=== PATIENT | female | born 1975 | race Caucasian/White ===

== ENCOUNTER 2016-12-24 21:21 | Emergency (ER) | payer SELFPAY ==
[~2016-12-24] VITALS: Ht 162.6 cm; Wt 52.2 kg
[2016-12-24 21:30] VITALS: BP 114/75
--- NOTE | 2016-12-24 22:21 | NUR ---
Pt taken to bed 11.
[2016-12-24] MEDS ORDERED: LIDOCAINE 1% ***ER ONLY *** 10 MG/ML VIAL INJ ONE (22:25)
--- NOTE | 2016-12-24 23:04 | NUR ---
Patient being evaluated by Dr. Robert at bedside.
--- NOTE | 2016-12-24 23:20 | NUR ---
PATIENT PRESENTS TO ED C/O BL UNDER ARM PAIN AND SWELLING . PT STATES PAIN AND SWELLING STARTED A WEEK AGO AND SHE PREVIOUSLY HAD THIS PROBLEM TO THE RT UNDERARM . DENIES N/V/D; SKIN IS PINK/WARM/DRY; AAOX4 WITH EVEN AND STEADY GAIT; LUNGS CLEAR BL; HR EVEN AND REGULAR; PT DENIES ANY FEVER, CP, SOB, OR COUGH AT THIS TIME; PATIENT STATES PAIN OF 5/10 AT THIS TIME; VSS; PATIENT POSITIONED FOR COMFORT; HOB ELEVATED; BEDRAILS UP X2; BED DOWN. ER MD MADE AWARE OF PT STATUS. NO DRAINAGE OR BLEEDING FORM THE SITES NOTED AT THIS TIME.
--- NOTE | 2016-12-25 00:05 | NUR ---
Dr. Robert at bedside for I&D.
[2016-12-25 00:40] VITALS: BP 121/86
--- NOTE | 2016-12-25 00:40 | NUR ---
Patient discharged with v/s stable. Written and verbal after care instructions given and explained. Patient alert, oriented and verbalized understanding of instructions. Ambulatory with steady gait. All questions addressed prior to discharge. ID band removed. Patient advised to follow up with PMD. Rx of motrin 600mg, norco 5mg, keflex 500mg, bactrim ds 800mg given. Patient educated on indication of medication including possible reaction and side effects. Opportunity to ask questions provided and answered.
== END 2016-12-25 00:05 | disposition home or self-care (01) ==
LOC: MED 21:21
DX: L02.412 Cutaneous abscess of left axilla (principal); L02.411 Cutaneous abscess of right axilla
CPT/HCPCS: 10060; 99284; J2001